=== PATIENT | male | born 1990 | race Native Hawaiian/Other Pacific Islander ===

== ENCOUNTER 2016-12-28 20:47 | Emergency (ER) | payer OTHER ==
[~2016-12-28] VITALS: Ht 180.3 cm; Wt 100.0 kg
[~2016-12-28 20:47] MED LIST: ZOFR4TAB3 SL
[2016-12-28 20:49] VITALS: BP 145/85; PULSE 78; RESP 13; TEMP 98.9; O2SAT 99
--- NOTE | 2016-12-28 21:02 | PD ---
HPI . right ear pain x 2 days Chief Complaint: ENT Complaint Time Seen by Provider: 21:02 Travel History International Travel<30 days: No Contact w/Intl Traveler<30days: No Traveled to known affect area: No History of Present Illness HPI 26-year-old male with no past medical history here with complaints of right ear pain for the past 2 days. Patient is complaining of right ear pain, but denies any drainage, fever or chills. He tells me that he is swimming daily. He is accompanied by his best friend. PFS Past Medical History Immunizations Current: Yes Social History Alcohol Use: Yes (daily) Tobacco Use: Yes Substance Use: No Allergies-Medications (Allergen,Severity, Reaction): Coded Allergies: No Known Allergies (Unverified , 12/28/16) Reported Meds & Prescriptions Reported Meds & Active Scripts Active Ciprodex Otic Drops (Ciprofloxacin-Dexamethasone Otic Drops) 0.3-0.1% Susp 4 Drop RIGHT EAR BID Review of Systems General / Constitutional: No: Fever Eyes: No: Visual changes HENT: Positive: Earache (right ), No: Headaches Cardiovascular: No: Chest Pain or Discomfort Respiratory: No: Shortness of Breath Gastrointestinal: No: Abdominal Pain Genitourinary: No: Dysuria Musculoskeletal: No: Pain Skin: No Rash Neurologic: No: Weakness Psychiatric: No: Depression Endocrine: No: Polydipsia Hematologic/Lymphatic: No: Easy Bruising Physical Exam Narrative GENERAL: AAO x 3, no acute distress, Well-nourished, well-developed patient. SKIN: Warm and dry. No visible rashes or bruising. HEAD: Normocephalic and atraumatic. EYES: No scleral icterus. No injection or drainage. EOM intact, PERRLA ENT: No nasal drainage noted. Mucous membranes pink. Airway patent. Right ear canal erythematous with edema and what appears to be some purulent discharge. Tenderness to the tragus. TMs normal bilaterally. No posterior pharynx erythema, edema or exudates. No mastoid process tenderness. NECK: Supple, trachea midline. No JVD. No lymphadenopathy. CARDIOVASCULAR: Regular rate and rhythm without murmurs, gallops, or rubs. RESPIRATORY: Breath sounds equal bilaterally. No accessory muscle use. No rhonchi or rales. GASTROINTESTINAL: Visual inspection normal EXTREMITIES: No cyanosis or edema. BACK: Nontender without obvious deformity. No CVA tenderness. PSYCH: AAO x 3, normal affect. Data Data Last Documented VS Vital Signs Date Time Temp Pulse Resp B/P Pulse Ox O2 Delivery O2 Flow Rate FiO2 12/28/16 20:49 98.9 78 13 145/85 99 Room Air MDM Medical Decision Making Medical Screen Exam Complete: Yes Emergency Medical Condition: Yes Medical Record Reviewed: Yes Differential Diagnosis Right otitis externa, otitis media, mastoiditis Narrative Course 26-year-old male here with right ear pain for 2 days. On examination he appears to have a right otitis externa with erythema, edema and some purulent drainage in the right ear canal. The TMs are normal bilaterally. I will go ahead and prescribe him some Ciprodex. I've advised no swimming for the next week. Patient verbalized understanding of instructions, questions were answered, and thanked me for their care. I advised them if their condition worsens, please return to the nearest emergency room for further care. Diagnosis Primary Impression: Otitis externa of right ear Qualified Code: H60.311 - Acute diffuse otitis externa of right ear Patient Instructions: General Instructions Additional Instructions: Please return to emergency department if your symptoms return or worsen. Follow up with your primary care provider. Take medications as prescribed. No swimming for the next week. Do not use Q-tips or insert any objects into your ear. Med/Other Pt SpecificInfo: Prescription(s) given Scripts Ciprofloxacin-Dexamethasone Otic Drops (Ciprodex Otic Drops)0.3-0.1% Susp4 Drop RIGHT EAR BID #1 BOTTLE Prov:Jamal Fleming MD 12/28/16 Disposition: 01 DISCHARGE HOME Condition: Stable Martine García December 28, 2016 21:02
[2016-12-28] MEDS ORDERED: CIPR0.3S RIGHT EAR (21:05)
== END 2016-12-28 21:26 | disposition home or self-care (01) ==
LOC: NEPK 20:47
DX: H60.311 Diffuse otitis externa, right ear (principal); Z72.0 Tobacco use
CPT/HCPCS: 99283

== ENCOUNTER 2017-10-02 17:51 | Emergency (ER) | payer OTHER ==
[~2017-10-02 17:51] MED LIST changes: +CIPR0.3S RIGHT EAR; -ZOFR4TAB3 SL
[2017-10-02 18:00] VITALS: BP 136/64; PULSE 78; RESP 18; TEMP 98.6; O2SAT 100
[2017-10-02] MEDS ORDERED: CLINDAMYCIN 150 MG CAP PO ONE (19:15)
[2017-10-02] MEDS ORDERED: CLIN300C5 PO (19:16)
--- NOTE | 2017-10-02 19:20 | PD ---
HPI Chief Complaint: Eye Problems/Injury Time Seen by Provider: 19:15 Travel History International Travel<30 days: No Contact w/Intl Traveler<30days: No Traveled to known affect area: No History of Present Illness HPI 27-year-old male says for evaluation of a painful skin lesions to the right upper eyelid margin. Aching pain, constant, worse with palpation. Denies any drainage. Denies any fevers, chills. Symptoms started 1 week ago. He has no other complaints at this time. [facility] Past Medical History Immunizations Current: Yes Social History Alcohol Use: Yes (daily) Tobacco Use: Yes Substance Use: No Allergies-Medications (Allergen,Severity, Reaction): Coded Allergies: No Known Allergies (Unverified , 12/28/16) Reported Meds & Prescriptions Reported Meds & Active Scripts Active Clindamycin (Clindamycin HCl) 300 Mg Cap 300 Mg PO TID 7 Days Ciprodex Otic Drops (Ciprofloxacin-Dexamethasone Otic Drops) 0.3-0.1% Susp 4 Drop RIGHT EAR BID Review of Systems General / Constitutional: No: Fever, Chills Eyes: No: Diploplia, Drainage Skin: Positive Other (painful skin lesion to the right upper eyelid) Physical Exam Narrative GENERAL: Well-nourished male in no acute distress SKIN: Warm and dry. There is a tender fluctuant stye noted to the right upper eyelid. There is some surrounding erythema. HEAD: Atraumatic. Normocephalic. EYES: Pupils equal and round. No scleral icterus. No injection or drainage. ENT: No nasal bleeding or discharge. Mucous membranes pink and moist. NECK: Trachea midline. No JVD. CARDIOVASCULAR: Regular rate and rhythm. No murmur appreciated. RESPIRATORY: No accessory muscle use. Clear to auscultation. Breath sounds equal bilaterally. Data Data Last Documented VS Vital Signs Date Time Temp Pulse Resp B/P (MAP) Pulse Ox O2 Delivery O2 Flow Rate FiO2 10/02/17 18:00 98.6 78 18 136/64 (88) 100 Orders Orders Ed Discharge Order (10/02/17 19:15) Clindamycin (Cleocin) (10/02/17 19:15) MDM Medical Decision Making Medical Screen Exam Complete: Yes Emergency Medical Condition: Yes Medical Record Reviewed: Yes Differential Diagnosis Hordeolum, chalazion, periorbital cellulitis Narrative Course The patient has a hordeolum with some mild surrounding cellulitic changes to the right upper eyelid. He will be discharged with clindamycin. Diagnosis Primary Impression: Hordeolum Additional Impression: Periorbital cellulitis Departure Forms: School Release, Return to School Date: Oct 04, 2017 Tests/Procedures Additional Instructions: Warm compresses several times a day 15 minutes at a time. Antibiotic as prescribed. Return for any acutely new or worsening symptoms. Med/Other Pt SpecificInfo: Prescription(s) given Scripts Clindamycin (Clindamycin) 300 Mg Cap 300 MG PO TID for Infection for 7 Days, CAP 0 Refills Prov: Alexei Horvath MD 10/02/17 Disposition: 01 DISCHARGE HOME Condition: Stable Nico Roman Oct 02, 2017 19:20
== END 2017-10-02 19:42 | disposition home or self-care (01) ==
LOC: NEPK 17:51
DX: H00.011 Hordeolum externum right upper eyelid (principal); L03.213 Periorbital cellulitis; Z72.0 Tobacco use
CPT/HCPCS: 99283